=== PATIENT | male | born 1965 | race Caucasian/White ===

== ENCOUNTER 2016-12-18 10:50 | Emergency (ER) | payer OTHER, SELFPAY ==
[~2016-12-18] VITALS: Ht 170.2 cm; Wt 67.0 kg
[2016-12-18] MEDS ORDERED: CARB200T PO (11:11)
[2016-12-18] MEDS ORDERED: LORazepam 2 MG/ML, 1ML ONE (11:58)
[2016-12-18] MEDS ORDERED: LORazepam 2 MG/ML, 1ML IVPush ONE (12:00)
[2016-12-18] MEDS ORDERED: DIPH,PERTUSS(ACELL),TET VAC/PF 0.5 ML IM-VACC ONE ×2 (12:00→12:43)
[2016-12-18 12:45] VITALS: BP 148/90
[2016-12-18 12:56] LABS: BLOOD UREA NITROGEN 14 mg/dL (7-18)
[2016-12-18 12:59] LABS: ASPARTATE AMINO TRANSFERASE 27 U/L (15-37)
[2016-12-18] MEDS ORDERED: BACITRACIN ZINC OINT 500U/GM, 0.9 GM ONE (13:14)
[2016-12-18] MEDS ORDERED: LIDOCAINE 1%-EPI 1:100K, 20ML SQ ONE (14:30)
== END 2016-12-18 14:13 | disposition home or self-care (01) ==
LOC: ED 14:07
DX: S01.81XA Laceration without foreign body of other part of head, initial encounter (principal); R56.9 Unspecified convulsions; F17.200 Nicotine dependence, unspecified, uncomplicated; X58.XXXA Exposure to other specified factors, initial encounter; Y93.89 Activity, other specified; Y92.89 Other specified places as the place of occurrence of the external cause; Y99.8 Other external cause status
CPT/HCPCS: 36415; 70450; 80053; 83735; 90471; 90715; 93005; 96374; 99285; J2060